=== PATIENT | female | born 1970 | race Hispanic/Latino ===

== ENCOUNTER 2018-06-26 08:33 | Emergency (ER) | payer OTHER ==
[2018-06-26] MEDS ORDERED: LIDOCAINE HCL 2% VISCOUS 15 ML UDCUP ONE (08:48)
== END 2018-06-26 10:02 | disposition home or self-care (01) ==
LOC: EDH 08:33
DX: R09.89 Other specified symptoms and signs involving the circulatory and respiratory systems (principal); I10 Essential (primary) hypertension; E11.9 Type 2 diabetes mellitus without complications; J45.909 Unspecified asthma, uncomplicated; Z90.710 Acquired absence of both cervix and uterus; Z98.890 Other specified postprocedural states
CPT/HCPCS: 70360

== ENCOUNTER 2022-12-13 08:39 | Emergency (ER) | payer BC, OTHER ==
[~2022-12-13] VITALS: Ht 154.9 cm; Wt 93.9 kg
[2022-12-13 08:46] VITALS: BP 159/104; PULSE 95; RESP 16; O2SAT 100
[2022-12-13 09:08] LABS: APPEARANCE,URINE CLEAR (CLEAR); BILIRUBIN,URINE NEGATIVE (NEGATIVE); COLOR,URINE YELLOW (YELLOW); GLUCOSE, URINE (UA) NEGATIVE (NEGATIVE); KETONES,URINE 10 mg/dL (NEGATIVE); LEUKOCYTE ESTERASE ,URINE 75 Leu/uL (NEGATIVE); NITRATE,URINE NEGATIVE (NEGATIVE); OCCULT BLOOD,URINE NEGATIVE (NEGATIVE); PH,URINE 5.5 (5.0-8.0); PROTEIN,URINE 20 mg/dL (NEGATIVE); UROBILINOGEN,URINE 0.2 mg/dL (0.2-1.0)
[2022-12-13 09:13] LABS: MUCUS,URINE RARE LPF (None Seen); RBC,URINE 0-1 /HPF (0-1); SQUAMOUS EPITHELIAL CELL,UR RARE /HPF (0-2)
[2022-12-13 09:28] LABS: CREATININE 0.7 mg/dL (0.5-1.5); POTASSIUM 3.4 mmol/L (3.5-5.1)
[2022-12-13] MEDS ORDERED: ONDANSETRON 4MG INJ IVP ONE (09:30)
[2022-12-13] MEDS ORDERED: LIDOCAINE HCL 2% VISCOUS 15 ML UDCUP PO ONE (09:30)
[2022-12-13] MEDS ORDERED: MORPHINE 4 MG SYG IVP ONE (09:30)
[2022-12-13] MEDS ORDERED: MAG/ALUM/SIMETH 30 ML UDCUP PO ONE (09:30)
[2022-12-13] MEDS ORDERED: 0.9%NACL 1000ML 2,000 ML IV ONE (09:30)
[2022-12-13] MEDS ORDERED: PANTOPRAZOLE 40 MG/VIAL IVP ONE (09:30)
[2022-12-13 09:33] LABS: ALBUMIN 3.4 g/dL (3.5-5.0); BASOPHILS % (AUTO) 0.5 % (0.0-5.0); EOSINOPHILS % (AUTO) 11.2 % (0.0-8.0); HEMATOCRIT 46.8 % (36-48); LYMPHOCYTES % (AUTO) 29.8 % (21.0-51.0); MEAN CORPUSCULAR HEMOGLOBIN 27.5 pg (27.0-33.0); MEAN CORPUSCULAR HGB CONC 31.8 g/dL (32.0-36.0); MEAN CORPUSCULAR VOLUME 86.5 fL (79-99); MONOCYTES % (AUTO) 7.3 % (3.0-13.0); NEUTROPHILS % (AUTO) 50.3 % (40.0-77.0); PLATELET COUNT (AUTO) 350 K/uL (130-400); RED BLOOD CELL COUNT(AUTO) 5.41 MIL/uL (4.00-5.50); RED CELL DISTRIBUTION WIDTH 13.2 % (11.0-15.5); TOTAL PROTEIN, SERUM 7.6 g/dL (6.0-8.3); WHITE BLOOD COUNT (AUTO) 9.7 K/uL (4.8-10.8)
[2022-12-13] MEDS ORDERED: POTASSIUM BICARB/CIT AC 25 MEQ TABLET.EFF PO ONE (10:00)
[2022-12-13] MEDS ORDERED: BIFI4CAP PO (10:23)
[2022-12-13] MEDS ORDERED: SULF1TAB42 PO (10:23)
[2022-12-13] MEDS ORDERED: LOPE2TAB26 PO (10:23)
== END 2022-12-13 11:22 | disposition home or self-care (01) ==
LOC: EDH 08:39
DX: K52.9 Noninfective gastroenteritis and colitis, unspecified (principal); N39.0 Urinary tract infection, site not specified; E11.9 Type 2 diabetes mellitus without complications; I10 Essential (primary) hypertension; K21.9 Gastro-esophageal reflux disease without esophagitis; Z88.1 Allergy status to other antibiotic agents
CPT/HCPCS: 36415; 76705; 80053; 81001; 83690; 84484; 85025; 87088; 93005; 96361; 96374; 96375; C9113; J2405; J7030

== ENCOUNTER 2023-08-16 07:11 | Emergency (ER) | payer BC ==
[~2023-08-16] VITALS: Ht 154.9 cm; Wt 97.1 kg
[~2023-08-16 07:11] MED LIST: BIFI4CAP PO; LOPE2TAB26 PO; SULF1TAB42 PO
[2023-08-16 07:54] LABS: BASOPHILS # (AUTO) 0.04 K/uL (0.00-0.20); BASOPHILS % (AUTO) 0.5 % (0.0-5.0); EOSINOPHILS # (AUTO) 0.17 K/uL (0.00-0.70); EOSINOPHILS % (AUTO) 2.3 % (0.0-8.0); HEMATOCRIT 42.3 % (36-48); IMMATURE GRANULOCYTE ABSOLUTE 0.03 K/uL (0-1); LYMPHOCYTES # (AUTO) 2.3 K/uL (1.0-4.8); LYMPHOCYTES % (AUTO) 31.3 % (21.0-51.0); MEAN CORPUSCULAR HEMOGLOBIN 28.1 pg (27.0-33.0); MEAN CORPUSCULAR HGB CONC 31.9 g/dL (32.0-36.0); MEAN CORPUSCULAR VOLUME 88.1 fL (79-99); MONOCYTES # (AUTO) 0.6 K/uL (0.1-1.0); MONOCYTES % (AUTO) 7.6 % (3.0-13.0); NEUTROPHILS # (AUTO) 4.3 K/uL (1.8-7.7); NEUTROPHILS % (AUTO) 57.9 % (40.0-77.0); PLATELET COUNT (AUTO) 308 K/uL (130-400); RED CELL DISTRIBUTION WIDTH 13.2 % (11.0-15.5); WHITE BLOOD COUNT (AUTO) 7.4 K/uL (4.8-10.8)
[2023-08-16 08:10] LABS: CREATININE 0.5 mg/dL (0.5-1.0); POTASSIUM 4.6 mmol/L (3.5-5.1)
[2023-08-16 08:15] LABS: ALBUMIN 3.6 g/dL (3.5-5.0); BILIRUBIN,TOTAL 0.2 mg/dL (0.2-1.0); TOTAL PROTEIN, SERUM 7.5 g/dL (6.0-8.3)
[2023-08-16 08:43] LABS: APPEARANCE,URINE CLOUDY (CLEAR); BILIRUBIN,URINE NEGATIVE (NEGATIVE); COLOR,URINE LIGHT-YELLOW (YELLOW); GLUCOSE, URINE (UA) 500 mg/dL (NEGATIVE); KETONES,URINE 5 mg/dL (NEGATIVE); LEUKOCYTE ESTERASE ,URINE 25 Leu/uL (NEGATIVE); NITRATE,URINE NEGATIVE (NEGATIVE); OCCULT BLOOD,URINE NEGATIVE (NEGATIVE); PROTEIN,URINE NEGATIVE (NEGATIVE); UROBILINOGEN,URINE 0.2 mg/dL (0.2-1.0)
[2023-08-16 08:44] LABS: ADD UA MICROSCOPIC YES
[2023-08-16 09:19] LABS: BACTERIA,URINE Few /HPF (None Seen)
[2023-08-16] MEDS: LEVOFLOXACIN 500 MG/D5W 100 ML 100 ML IV SCH (11:36)
[2023-08-16] MEDS: ORPHENADRINE CITRATE 30 MG/ML ML IVP ONE (11:36)
[2023-08-16] MEDS: KETOROLAC 30MG VIAL (30MG/ML) IVP ONE (11:37)
[2023-08-16] MEDS: MORPHINE 4 MG SYG IM ONE (13:30)
[2023-08-16] MEDS ORDERED: CYCL-309 PO (13:44)
[2023-08-16] MEDS ORDERED: CIPR-278 PO (13:44)
[2023-08-16] MEDS ORDERED: NAPR500T6 PO (13:44)
[2023-08-16 14:12] VITALS: BP 145/83; PULSE 72; RESP 18; O2SAT 98
== END 2023-08-16 14:14 | disposition home or self-care (01) ==
LOC: EDH 07:11
DX: N39.0 Urinary tract infection, site not specified (principal); R10.9 Unspecified abdominal pain; I10 Essential (primary) hypertension; E11.9 Type 2 diabetes mellitus without complications; K21.9 Gastro-esophageal reflux disease without esophagitis; Z88.1 Allergy status to other antibiotic agents; Z90.710 Acquired absence of both cervix and uterus; Z79.899 Other long term (current) drug therapy
CPT/HCPCS: 99284; 74176; 96365; 96375; 80053; 85025; 81001; 36415; 96372; J1956; J2270; J1885; J2360